=== PATIENT | female | born 1965 | race Two or more races ===

== ENCOUNTER 2025-02-23 22:08 | Emergency (ER) | payer BC ==
[~2025-02-23] VITALS: Ht 147.3 cm; Wt 59.0 kg
[2025-02-23] MEDS ORDERED: VALSARTAN320 MG PO (22:29)
[2025-02-23] MEDS ORDERED: HORIZANT300 MG (22:29)
[2025-02-23] MEDS ORDERED: HYDRALAZINE HCL50 MG PO (22:30)
[2025-02-24] MEDS ORDERED: ORPHENADRINE CITRATE 30 MG/ML AMPUL IM ONE (00:15)
[2025-02-24] MEDS ORDERED: KETOROLAC TROMETHAMINE 60 MG VIAL IM ONE ×2 (00:15→00:20)
[2025-02-24] MEDS ORDERED: ACETAMINOPHEN 500 MG GEL..CAP PO ONE ×2 (00:15→00:20)
[2025-02-24] MEDS ORDERED: DEXAMETHASONE SODIUM PHOSPHATE 4 MG/ML VIAL IM ONE (00:15)
[2025-02-24] MEDS ORDERED: ORPHENADRINE CITRATE 30 MG/ML AMPUL ONE (00:20)
[2025-02-24] MEDS ORDERED: DEXAMETHASONE SODIUM PHOSPHATE 4 MG/ML VIAL ONE (00:21)
[2025-02-24] MEDS ORDERED: 8HR ARTHRITIS650 M1 PO (00:47)
[2025-02-24] MEDS ORDERED: NORFLEX100MG PO (00:47)
== END 2025-02-24 02:25 | disposition home or self-care (01) ==
LOC: ER 22:09
DX: S93.492A Sprain of other ligament of left ankle, initial encounter (principal); X58.XXXA Exposure to other specified factors, initial encounter; Y93.89 Activity, other specified; Y92.59 Other trade areas as the place of occurrence of the external cause; Y99.8 Other external cause status; I10 Essential (primary) hypertension